=== PATIENT | female | born 1960 | race Caucasian/White ===

== ENCOUNTER → 2016-09-21 | Outpatient (CLI) | payer BC ==
[~2016-09-21] MED LIST: ACET65TA OR; AMIT25TA2 OR; BROMELAIN PO; DECADRON PO; LYRI75CA PO; MULTTAB4 PO; dexilant PO; vesicare PO; vitamin d PO
--- NOTE | 2016-09-21 15:19 | REP ---
CT MAXILLOFACIAL WITHOUT CONTRAST: 09/21/2016. Clinical history: Chronic maxillary sinusitis. There are no prior studies. Findings: Our standard protocol with coronal bone window reconstructions reviewed. Nasal septum slightly deviated towards the left side anteriorly. The nasal bones and nasal spine of the maxilla intact. The pneumonic arches, lateral orbital struts, medial orbital quintana and floors were unremarkable. The ostiomeatal complexes show patency of the ostia and infundibula with bilateral Rubina cells evident. There is no mucosal thickening or air-fluid level in either maxillary sinus. Sphenoid sinuses are clear. Frontal sinuses were also clear. The ethmoid air cells show no mucosal thickening or opacification. Orbits and contents are symmetric and grossly normal. Mastoids symmetric and normal. The skull base visible on this study and those portions of mandible seen were unremarkable. Impression: 1. There is bilateral Rubina cell evident at the OMC's without significant stenosis or signs of mucosal thickening/air-fluid levels in either maxillary sinus. 2. Frontal, ethmoid, sphenoid sinuses clear. Deviation of nasal septum towards the left, but otherwise unremarkable study. Signed by Baljit Presley MD 09/21/2016 04:47 P
== END ==
LOC: M RAD 14:04
DX: J32.0 Chronic maxillary sinusitis (principal); J34.2 Deviated nasal septum

== ENCOUNTER → 2017-03-28 | Outpatient (REF) | payer BC ==
[2017-03-28 21:57] LABS: BACTERIA, URINE NONE SEEN; HYALINE CAST, URINE NONE SEEN /lpf (0-1); RBC, URINE 0-1 /hpf (0-3); SQUAMOUS EPITHELIAL CELL URINE SMALL AMOUNT /hpf (SMALL AMT); WBC, URINE NONE SEEN /hpf (0-3)
[2017-03-28 21:58] LABS: MICROSCOPIC EXAM PERFORMED
== END ==
LOC: M SMT 17:23
PROVIDERS: ATTEND Specialist
DX: N32.81 Overactive bladder (principal)

== ENCOUNTER → 2019-09-11 | Outpatient (REF) | payer BC ==
[2019-09-11 13:25] LABS: C REACTIVE PROTEIN QUANTITATIV < 0.30 MG/DL (0.00-0.30); COMPLEMENT C3 102 MG/DL (90-180); COMPLEMENT C4 28 MG/DL (10-40); TOTAL PROTEIN 6.9 GM/DL (6.4-8.2)
[2019-09-12 14:32] LABS: ALBUMIN % 62.3 % (55.8-66.1); ALPHA-1-GLOBULIN % 4.6 % (2.9-4.9); ALPHA-1-GLOBULINS 0.32 GM/DL (0.17-0.41); ALPHA-2-GLOBULINS % 9.8 % (7.1-11.8); BETA-2-GLOBULINS % 4.2 % (3.2-6.5); GAMMA GLOBULIN % 13.1 % (11.1-18.8)
[2019-09-12 14:33] LABS: ALPHA-2-GLOBULINS 0.68 GM/DL (0.42-0.99); BETA-1-GLOBULINS 0.41 GM/DL (0.28-0.60); BETA-2-GLOBULINS 0.29 GM/DL (0.19-0.55)
[2019-09-13 00:06] LABS: SSA SJOGRENS A <0.2 AI (0.0-0.9); SSB SJOGRENS B <0.2 AI (0.0-0.9)
== END ==
LOC: M SFHCRHEU 09:41
PROVIDERS: ATTEND Internal Medicine
DX: R76.8 Other specified abnormal immunological findings in serum (principal); H04.123 Dry eye syndrome of bilateral lacrimal glands

== ENCOUNTER → 2020-01-14 | Outpatient (REF) | payer BC | LOC: M LAB REF 17:18 | PROVIDERS: ATTEND Dermatology | DX: L72.11 Pilar cyst (principal) ==

== ENCOUNTER → 2022-03-30 | Outpatient (CLI) | payer BC | LOC: M WHC 11:35 | PROVIDERS: ATTEND Nurse Practitioner Family | DX: E04.2 Nontoxic multinodular goiter (principal); E21.3 Hyperparathyroidism, unspecified ==